=== PATIENT | male | born 1980 | race African-American/Black ===

== ENCOUNTER 2019-07-26 22:24 | Emergency (ER) | payer OTHER ==
[2019-07-26 22:30] VITALS: TEMP 97.5; BMI 22.2
[2019-07-26] MEDS ORDERED: IBUPROFEN 600 MG TABLET (FP) PO ONE ×2 (23:30)
--- NOTE | 2019-07-26 23:30 | PDOC ---
History of Present Illness - General Chief Complaint: Head/Neck problem Stated Complaint: PAIN Time Seen by Provider: 07/26/19 23:03 - History of Present Illness Initial Comments: 07/26/19 23:34 38 y/o M no significant medical hx presents to the ED with complaints of right sided neck pain of 1 days duration. The pain is 10/10 intermittent pain that is exacerbated by movement and relieved with rest. It does not radiate down his right arm or back, and he denies any trauma or injury to the area. He has not taken anything at his senior living for pain relief. He denies any fevers, chills, neck stiffness, sick contacts, tingling or burning pain down his arm, headache, numbness. 07/27/19 00:34 Past History - Past Medical History Allergies/Adverse Reactions: Allergies Allergy/AdvReac Type Severity Reaction Status Date / Time mometasone furoate Allergy Verified 07/26/19 22:30 [From Nasonex] COPD: No - Psycho Social/Smoking Cessation Hx Smoking History: Current every day smoker Information on smoking cessation initiated: No Review of Systems - Review of Systems Constitutional: No: Chills, Fever HEENTM: No: Eye Pain, Blurred Vision Respiratory: No: Cough, Shortness of Breath Cardiac (ROS): No: Chest Pain, Lightheadedness ABD/GI: No: Abdominal Distended, Diarrhea : No: Burning, Dysuria Musculoskeletal: Yes: Neck Pain. No: Back Pain, Joint Pain Integumentary: No: Bruising, Lesions Neurological: No: Headache, Numbness Psychiatric: No: Anxiety, Depression *Physical Exam - Vital Signs Last Vital Signs Temp Pulse Resp BP Pulse Ox 97.5 F L 100 H 18 122/75 99 07/26/19 22:27 07/26/19 22:27 07/26/19 22:27 07/26/19 22:27 07/26/19 22:27 - Physical Exam Comments: 07/26/19 23:30 PE: GENERAL: AO x 3 very slow speech. Disheveled HEAD: No signs of trauma, normocephalic, atraumatic EYES: PERRLA,(left eye) cloudy white pupil righe eye. injected conjunctiva bilaterally ENT: Auricles normal inspection, hearing grossly normal, nares patent, oropharynx clear without exudates. Moist mucosa NECK: Normal ROM, no c-spine tenderness, right paraspinal and trapezius tenderness. Abduction of right and left arm with no tingling. but reports increased pain.Neck supple, no lymphadenopathy, JVD, or masses LUNGS: No distress, speaks full sentences, clear to auscultation bilaterally HEART: Regular rate and rhythm, normal S1 and S2, no murmurs, rubs or gallops, peripheral pulses normal and equal bilaterally. ABDOMEN: Soft, nontender, normoactive bowel sounds. No guarding, no rebound. No masses EXTREMITIES : Normal inspection, Normal range of motion, no edema. No clubbing or cyanosis NEUROLOGICAL: Cranial nerves II through XII grossly intact. Normal speech, normal gait, no focal sensorimotor deficits SKIN: Warm, Dry, normal turgor, no rashes or lesions noted Medical Decision Making - Medical Decision Making 07/26/19 23:35 38 y/o M no significant medical hx presents to the ED with complaints of right sided neck pain of 1 days duration. Pt lives at senior living. some inconsistencies in his history. However AO x 3 on exam. Meds 600 mg motrin PO 07/27/19 00:31 Pt on reassesment by Dr. Bello, is feeling a lot better and reports feeling well enough to go home. 07/27/19 00:36 Discharge - Discharge Information Problems reviewed: Yes Clinical Impression/Diagnosis: Neck pain Condition: Improved Disposition: HOME - Admission No - Follow up/Referral - Patient Discharge Instructions Patient Printed Discharge Instructions: DI for Neck Pain Additional Instructions: You were seen in the ER for neck pain. You were given some pain medications. If you continue to feel pain you can take ibuprofen at home and follow all instructions on the label You can use and Ice pack for pain relief as well Return to the ER: if you develop neck stiffness fevers, chills, your pain does not get any better, or worsens. - Post Discharge Activity
--- NOTE | 2019-07-26 23:44 | PDOC ---
Documentation entered by Filomena Schreiber SCRIBE, acting as scribe for Petrona Bello DO. Petrona Bello DO: This documentation has been prepared by the Abdoul mcneal Adrianna, SCRIBE, under my direction and personally reviewed by me in its entirety. I confirm that the documentation accurately reflects all work, treatment, procedures, and medical decision making performed by me. Attending Attestation - Resident Resident Name: José MiguelJoetelly - ED Attending Attestation I have performed the following: I have examined & evaluated the patient, The case was reviewed & discussed with the resident, I agree w/resident's findings & plan, Exceptions are as noted - HPI HPI: The patient is a 38 year old male, with no significant PMH, who presents to the ED for evaluation of neck pain since this morning. Patient notes he woke up with neck pain, which he thinks is a result of possibly sleeping differently. He states his pain is exacerbated with lateral rotations of the neck. Patient denies any heavy lifting or trauma to the neck. He notes that he rode his bike to the ED and his pain was worse after. Denies headache, changes in vision, blurred vision, numbness or tingling. Allergies: Mometasone furoate Surgical History: None reported Social History: Lives in a longterm. Current everyday smoker - Physicial Exam PE: Constitutional: Awake, alert, oriented. No acute distress. Head: Normocephalic. Atraumatic Eyes: PERRL. EOMI. Conjunctivae are not pale. ENT: Mucous membranes are moist and intact. Posterior pharynx without exudates or erythema. Uvula midline. Neck: +Right trapezius tenderness to palpation. Supple. Full ROM. No lymphadenopathy. Cardiovascular: Regular rate. Regular rhythm. S1, S2 regular. Distal pulses are 2+ and symmetric. Pulmonary/Chest: No evidence of respiratory distress. Clear to auscultation bilaterally No wheezing, rales or rhonchi. Abdominal: Soft and non-distended. There is no tenderness. No rebound, guarding or rigidity. No organomegaly. No palpable masses. Good bowel sounds. Back: No CVA tenderness. No midline tenderness. Musculoskeletal: No edema. No cyanosis. No clubbing. Full range of motion in all extremities. Nocalf tenderness. Radial/pedal pulses are intact and 2+ bilaterally Skin: Skin is warm and dry. No petechiae. No purpura. Neurological: Alert and oriented to person, place, and time. Cranial nerves II -XII are grossly intact. Normal speech. Strength is grossly symmetric. No sensory deficits. Ambulates with a steady gait. Psychiatric: Good eye contact. Normal interaction, affect and behavior. - Medical Decision Making 07/26/19 23:42 I, Dr. Petrona Bello, DO, attest that this document has been prepared under my direction and personally reviewed by me in its entirety. I further attest, that it accurately reflects all work, treatment, procedures and medical decision -making performed by me. a/p: 38[facility] c/o R lateral neck pain -ttp along the trapezius -no midline ttp -FROM of the cervical spine -will give motrin and monitor -FROM of arms and legs -no back ttp -no ross -no fever -will monitor and reassess 07/27/19 00:30 pt states feeling better states neck pain improved requesting to go home stable for dc to home
[2019-07-27 00:45] VITALS: BP 101/64; PULSE 87
== END 2019-07-27 00:43 | disposition home or self-care (01) ==
LOC: JER 22:24
DX: M54.2 Cervicalgia (principal); F17.210 Nicotine dependence, cigarettes, uncomplicated
CPT/HCPCS: 99282-25

== ENCOUNTER 2019-09-13 23:24 | Emergency (ER) | payer OTHER ==
[2019-09-13 23:58] VITALS: BP 130/94; PULSE 90; TEMP 98.4; BMI 20.3
[2019-09-14] MEDS ORDERED: IBUPROFEN 600 MG TABLET (FP) PO ONE ×3 (01:28→01:39)
--- NOTE | 2019-09-14 01:35 | PDOC ---
History of Present Illness - General Chief Complaint: Pain Stated Complaint: CRAMPS Time Seen by Provider: 09/14/19 01:09 History Source: Patient Exam Limitations: No Limitations Past History - Past Medical History Allergies/Adverse Reactions: Allergies Allergy/AdvReac Type Severity Reaction Status Date / Time mometasone furoate Allergy Verified 09/13/19 23:45 [From Nasonex] Home Medications: Ambulatory Orders NK [No Known Home Medication] 07/27/19 COPD: No - Psycho Social/Smoking Cessation Hx Smoking History: Never smoked Have you smoked in the past 12 months: No Information on smoking cessation initiated: No Hx Alcohol Use: No Drug/Substance Use Hx: No *Physical Exam - Vital Signs Last Vital Signs Temp Pulse Resp BP Pulse Ox 98.4 F 90 18 130/94 99 09/13/19 23:46 09/13/19 23:46 09/13/19 23:46 09/13/19 23:46 09/13/19 23:46 - Physical Exam General Appearance: No: Apparent Distress Respiratory/Chest: positive: Lungs Clear, Normal Breath Sounds. negative: Respiratory Distress Cardiovascular: positive: Regular Rhythm, Regular Rate, S1, S2. negative: Murmur Gastrointestinal/Abdominal: positive: Normal Bowel Sounds, Soft. negative: Tender, Distended, Guarding, Rebound Extremity: positive: Normal Inspection, Delayed Capillary Refill, Other (2+ pulses of BLE). negative: Coldness, Cyanosis, Pedal Edema, Swelling, Calf Tenderness, Erythema Integumentary: positive: Normal Color. negative: Cyanotic, Pale, Cold, Clammy, Rash, Swelling, Ecchymosis, Bruising Neurologic: positive: Fully Oriented, Alert, Motor Strength 5/5 Medical Decision Making - Medical Decision Making 38 y/o M hx of ?HTN, from ?senior care presents for B/L thigh cramping x 20 years , worse the past 1.5 months. Patient has no precise reason for what made him concerned enough to come to ED today. States he initially noticed the cramping after riding his bike. Cramping in intermittent and can go away when lying on his stomach. It can come back with walking. Denies fever, sob, cp, abd pain, n/v , numbness/tingling/weakness of extremities, trauma PE unremarkable Unlikely electrolye abnormality, rhabdomylosis given chronicity of symptoms ( also wouldn't make sense with intermittent nature of sxs) Unlikely PAD given pulses intact No red flags raised on exam Will give Motrin Patient has f/u appt with his PCP, Dr. Varela, tomorrow 09/14/19 01:30 Discharge - Discharge Information Problems reviewed: Yes Clinical Impression/Diagnosis: Thigh cramp Condition: Stable Disposition: HOME - Admission No - Additional Discharge Information Prescription Drug Monitoring Program (I-STOP) results: I-STOP not reviewed - Follow up/Referral Referrals: Quan Varela [Primary Care Provider] - 2 Days - Patient Discharge Instructions Additional Instructions: Thank you for choosing [facility]. It was a pleasure taking care of you. You may take Tylenol 650 mg or Motrin 600 mg every 6 hours by mouth as needed for mild to moderate pain. Take Motrin with food. Do not take more than 4000 mg of Tylenol in 1 day. Continue follow-up with your doctor in 2 days Return to the Emergency Department if your symptoms worsen or persist, you have fever, shortness of breath, chest pain, weakness of extremities (arms and/or legs), changes in walking, change in color of extremities or other concerning symptoms. - Post Discharge Activity
--- NOTE | 2019-09-14 02:41 | PDOC ---
*Physical Exam - Vital Signs Last Vital Signs Temp Pulse Resp BP Pulse Ox 98.4 F 90 18 130/94 99 09/13/19 23:46 09/13/19 23:46 09/13/19 23:46 09/13/19 23:46 09/13/19 23:46 ED Treatment Course - Medications Given in the ED: ED Medications Discontinued Medications Generic Name Dose Route Start Last Admin Trade Name Nimesh PRN Reason Stop Dose Admin Ibuprofen 600 mg 09/14/19 01:28 09/14/19 01:40 Motrin - PO 09/14/19 01:29 600 mg ONCE ONE Administration Medical Decision Making - Medical Decision Making 09/14/19 02:41 Case reviewed, agree with assessment and plan Discharge - Discharge Information Problems reviewed: Yes Clinical Impression/Diagnosis: Thigh cramp Condition: Stable Disposition: HOME - Follow up/Referral Referrals: FriendQuan [Primary Care Provider] - 2 Days - Patient Discharge Instructions Additional Instructions: Thank you for choosing [facility]. It was a pleasure taking care of you. You may take Tylenol 650 mg or Motrin 600 mg every 6 hours by mouth as needed for mild to moderate pain. Take Motrin with food. Do not take more than 4000 mg of Tylenol in 1 day. Continue follow-up with your doctor in 2 days Return to the Emergency Department if your symptoms worsen or persist, you have fever, shortness of breath, chest pain, weakness of extremities (arms and/or legs), changes in walking, change in color of extremities or other concerning symptoms. - Post Discharge Activity
== END 2019-09-14 02:08 | disposition home or self-care (01) ==
LOC: JER 23:24
DX: R25.2 Cramp and spasm (principal); Z88.8 Allergy status to other drugs, medicaments and biological substances
CPT/HCPCS: 99282-25

== ENCOUNTER 2019-10-21 02:40 | Emergency (ER) | payer OTHER ==
[2019-10-21 03:06] VITALS: BP 138/88; PULSE 89; TEMP 98.3; BMI 21.5
--- NOTE | 2019-10-21 03:07 | PDOC ---
Attending Attestation - Resident Resident Name: Jaret Posadas - ED Attending Attestation I have performed the following: I have examined & evaluated the patient, The case was reviewed & discussed with the resident, I agree w/resident's findings & plan - HPI HPI: 10/21/19 03:23 URI symptoms 2-3 episodes of vomiting He has some blood on the toilet paper when he wipes. Pt states that he has abdominal pain that is diffuse. - Physicial Exam PE: 10/21/19 03:44 Agree with resident exam afebrile VSS Heart RRR Lungs CTAB abd soft NTND Pt has abdominal pain - Medical Decision Making 10/21/19 05:02 Pt comes with abd discomfort and vomiting. He has the same gastroenteritis that is affecting all of our patients with vomiting today. 10/21/19 05:05 Labs normal IV saline administered. UA shows no ketones and no infection and he will be discharged home '
[2019-10-21] MEDS ORDERED: ONDANSETRON 4 MG/2 ML VIAL IVPUSH ONE (03:25)
[2019-10-21] MEDS ORDERED: ACETAMINOPHEN 1000 MG/100 ML VIAL (NON FORMULARY) IVPB ONE (03:25)
[2019-10-21] MEDS ORDERED: SODIUM CHLORIDE 0.9% 500 ML INFUS.BAG IV ONE ×2 (03:25→04:17)
--- NOTE | 2019-10-21 03:27 | PDOC ---
History of Present Illness - General Chief Complaint: Nausea/Vomiting Stated Complaint: ABD PAIN Time Seen by Provider: 10/21/19 03:07 - History of Present Illness Initial Comments: The pt is a 39M w/ a reported history of GERD, HTN?, DM? (no meds) presenting from a nursing home for evaluation of several hours of N/V/D. The pt reports NBNB emesis x3 and diarrhea x3. The pt endorses BRB on toilet paper but denies blood in his stool or in the toilet bowel. Denies fevers/chills, chest pain, trouble breathing, dysuria, hematuria, rash. Pt is currently taking mucinex for URI symptoms this week. 10/21/19 03:26 Past History - Past Medical History Allergies/Adverse Reactions: Allergies Allergy/AdvReac Type Severity Reaction Status Date / Time mometasone furoate Allergy Verified 10/21/19 03:06 [From Nasonex] Home Medications: Ambulatory Orders NK [No Known Home Medication] 07/27/19 COPD: No - Psycho Social/Smoking Cessation Hx Smoking History: Current every day smoker Have you smoked in the past 12 months: Yes Number of Cigarettes Smoked Daily: 1 Information on smoking cessation initiated: No Hx Alcohol Use: No (patient denies) Drug/Substance Use Hx: No (patient denies) Review of Systems - Review of Systems Able to Perform ROS?: Yes Comments:: GENERAL/CONSTITUTIONAL: No fever or chills. No weakness HEAD, EYES, EARS, NOSE AND THROAT: No change in vision. No change in hearing. No sore throat CARDIOVASCULAR: No chest pain or shortness of breath RESPIRATORY: Denies cough, hemoptysis GASTROINTESTINAL: per HPI GENITOURINARY: No dysuria, frequency, or change in urination MUSCULOSKELETAL: No joint or muscle swelling or pain. No neck or back pain SKIN: No rash NEUROLOGIC: No headache, vertigo, loss of consciousness, or change in strength/ sensation ENDOCRINE: No increased thirst. No abnormal weight change HEMATOLOGIC/LYMPHATIC: No anemia, easy bleeding, or history of blood clots ALLERGIC/IMMUNOLOGIC: No hives or skin allergy Is the patient limited Portuguese proficient: No *Physical Exam - Vital Signs Last Vital Signs Temp Pulse Resp BP Pulse Ox 98.3 F 89 18 138/88 100 10/21/19 03:03 10/21/19 03:03 10/21/19 03:03 10/21/19 03:03 10/21/19 03:03 - Physical Exam GENERAL: Awake, alert, and oriented to person/place/time, in no acute distress HEAD: No signs of trauma, normoc ephalic, atraumatic EYES: PERRLA, EOMI, sclera anicteric, conjunctiva clear ENT: Hearing grossly normal, nares patent, oropharynx clear without exudates. Moist mucosa LUNGS: No distress, speaks in full sentences, clear to auscultation bilaterally HEART: Regular rate and rhythm, normal S1 and S2, no murmurs appreciated, peripheral pulses normal and equal bilaterally ABDOMEN: Soft, mild generalized TTP w/o rebound or guarding, normoactive bowel sounds EXTREMITIES: Normal inspection, Normal range of motion, no edema. No clubbing or cyanosis NEUROLOGICAL: Cranial nerves II through XII grossly intact. Normal speech, normal gait, no focal sensorimotor deficits SKIN: Warm, Dry ED Treatment Course - LABORATORY CBC & Chemistry Diagram: 10/21/19 03:30 10/21/19 03:30 Medical Decision Making - Medical Decision Making The pt is a 39M w/ a reported history of GERD, HTN?, DM? (no meds) presenting from a nursing home for evaluation of several hours of N/V/D. Symptoms likely 2/2 viral syndrome ED Course CMP, CBC, Influenza OfirmevLis, IVF 10/21/19 03:33 No leukocytosis No anemia Lytes unremarkable No CAESAR LFTs unremarkable Influenza neg UA unremarkable Likely viral syndrome Pt tolerating PO in ED Plan for D/C w/ PCP f/u Discharge instructions and return precautions given Patient in agreement and verbalized understanding Dispo: Home Discharge - Discharge Information Problems reviewed: Yes Clinical Impression/Diagnosis: Viral syndrome Condition: Stable Disposition: HOME - Admission No - Follow up/Referral Referrals: Quan Varela [Primary Care Provider] - - Patient Discharge Instructions Patient Printed Discharge Instructions: DI for Viral Syndrome Additional Instructions: You were seen in the Emergency Department for evaluation of cough. Your symptoms are likely related to a virus and will likely self resolve within a week. Review the handout provided at discharge. Be sure to frequently wash your hands. Avoid close contact with young children, elderly, or weak immune system. Follow up with your primary care doctor within a week. - Post Discharge Activity
[2019-10-21] MEDS ORDERED: ACETAMINOPHEN INJECTION 100 ML IVPB ONE (03:29)
[2019-10-21] MEDS ORDERED: ONDANSETRON 4 MG/2 ML VIAL ONE (03:29)
[2019-10-21 03:55] LABS: BASO % 0.5 % (0-2.0); EOS % 1.7 % (0-4.5); HEMATOCRIT 43.2 % (35.4-49); HEMOGLOBIN 14.5 GM/dL (11.7-16.9); LYMPH % 19.7 % (8-40); MCH 29.6 pg (25.7-33.7); MCHC 33.7 g/dl (32.0-35.9); MEAN PLT VOLUME 8.6 fl (7.5-11.1); MONO % 8.3 % (3.8-10.2); NEUT % 69.8 % (42.8-82.8); PLATELET COUNT 258 K/MM3 (134-434); RBC 4.91 M/mm3 (4.00-5.60); RDW 14.6 % (11.9-15.9); WHITE BLOOD COUNT 8.9 K/mm3 (4.0-10.0)
[2019-10-21 04:15] LABS: BILIRUBIN,TOTAL 0.3 mg/dL (0.2-1); CREATININE 0.9 mg/dL (0.55-1.3); POTASSIUM 3.8 mmol/L (3.5-5.1); TOT PROT 7.3 g/dl (6.4-8.2)
[2019-10-21 04:47] LABS: URINE APPEARANCE CLEAR; URINE BILIRUBIN NEGATIVE (NEGATIVE); URINE COLOR YELLOW; URINE GLUCOSE (UA) NEGATIVE (NEGATIVE); URINE KETONE NEGATIVE (NEGATIVE); URINE LEUK ESTERASE NEGATIVE (NEGATIVE); URINE NITRITE NEGATIVE (NEGATIVE); URINE PROTEIN NEGATIVE (NEGATIVE); URINE UROBILINOGEN 0.2 mg/dL (0.2-1.0)
== END 2019-10-21 05:10 | disposition home or self-care (01) ==
LOC: JER 02:40
PROC: 3E033GC Introduction of Other Therapeutic Substance into Peripheral Vein, Percutaneous Approach (ICD-10-PCS; principal; 2019-10-21)
PROC: 3E033NZ Introduction of Analgesics, Hypnotics, Sedatives into Peripheral Vein, Percutaneous Approach (ICD-10-PCS; 2019-10-21)
DX: B34.9 Viral infection, unspecified (principal); I10 Essential (primary) hypertension; E11.9 Type 2 diabetes mellitus without complications; K21.9 Gastro-esophageal reflux disease without esophagitis; Z88.8 Allergy status to other drugs, medicaments and biological substances
CPT/HCPCS: 36415; 80053; 81003; 85025; 87804; 96374; 96375; 99283-25; J0131